=== PATIENT | female | born 1930 | race Caucasian/White ===

== ENCOUNTER 2017-10-24 17:41 | Emergency (ER) | payer MEDICARE, MEDICAID, OTHER ==
[~2017-10-24] VITALS: Ht 147.3 cm; Wt 76.9 kg
[~2017-10-24 17:41] MED LIST: CARV3.122 PO; CHOL10002 PO; FURO40TA4 PO; POTA10TA15 PO; RIVA15TA PO; SACU1TAB7 PO
[2017-10-24 18:17] VITALS: BP 139/57
[2017-10-24] MEDS ORDERED: CEPH-572 PO (20:50)
[2017-10-24] MEDS ORDERED: HYDROcodone/acetaminophen 5mg/325mg tablet PO ONE (20:55)
== END 2017-10-24 21:09 | disposition home or self-care (01) ==
LOC: ER 17:41
DX: L03.011 Cellulitis of right finger (principal); I25.10 Atherosclerotic heart disease of native coronary artery without angina pectoris; I50.9 Heart failure, unspecified; I48.91 Unspecified atrial fibrillation; Z95.1 Presence of aortocoronary bypass graft; Z96.89 Presence of other specified functional implants; Z95.0 Presence of cardiac pacemaker; Z79.899 Other long term (current) drug therapy
CPT/HCPCS: 73120; 99284

== ENCOUNTER 2017-12-16 01:05 | Emergency (ER) | payer MEDICARE, MEDICAID, OTHER ==
[~2017-12-16] VITALS: Ht 149.9 cm; Wt 77.5 kg
[2017-12-16 04:38] VITALS: BP 151/56
[2017-12-16 04:53] LABS: CLARITY,URINE CLEAR (Clear); COLOR,URINE YELLOW (Yellow); GLUCOSE, URINE NEGATIVE (Neg); KETONES,URINE NEGATIVE (Neg); LEUKOCYTE ESTERASE ,URINE TRACE (Neg); NITRITES, URINE NEGATIVE (Neg); OCCULT BLOOD,URINE TRACE-LYSED (Neg); PROTEIN,URINE NEGATIVE (Neg); UA COLLECTION TYPE CLN CATCH MIDSTREAM; UROBILINOGEN,URINE 0.2 E.U/dL (0.2-1.0)
[2017-12-16 04:57] LABS: BASOPHILS % (AUTO) 0.6 % (0-1); EOSINOPHILS # (AUTO) 0.4 X10'3 (0-0.9); EOSINOPHILS % (AUTO) 5.5 % (0-6); HEMATOCRIT 34.2 % (35.0-45.0); HEMOGLOBIN 11.5 g/dl (12.0-16.0); LYMPHOCYTES # (AUTO) 1.6 X10'3 (1.1-4.8); LYMPHOCYTES % (AUTO) 24.8 % (21-51); MEAN CORPUSCULAR HEMOGLOBIN 27.8 PG (27.0-31.0); MEAN CORPUSCULAR HGB CONC 33.7 % (33.0-36.5); MEAN CORPUSCULAR VOLUME 82.4 FL (78-98); MONOCYTES # (AUTO) 0.8 X10'3 (0-0.9); MONOCYTES % (AUTO) 11.7 % (2-12); NEUTROPHILS # (AUTO) 3.7 X10'3 (1.8-7.7); NEUTROPHILS % (AUTO) 57.4 % (42-75); PLATELET COUNT 214 X10'3 (140-440); RED BLOOD COUNT 4.15 X10'6 (4.20-5.60); WHITE BLOOD COUNT 6.5 X10'3 (4.5-11.0)
[2017-12-16 04:59] LABS: BACTERIA,URINE 3+ /HPF (Neg); SQUAMOUS EPITHELIAL CELL,UR FEW /LPF (FEW)
[2017-12-16 05:07] LABS: ALANINE AMINOTRANSFERASE 12 U/L (12-78); ALBUMIN 3.4 G/DL (3.4-5.0); ALBUMIN/GLOBULIN RATIO 0.8 (1.1-1.5); ALKALINE PHOSPHATASE 73 IU/L (46-116); ANION GAP 9 (8-16); ASPARTATE AMINO TRANSFERASE 19 U/L (10-37); BILIRUBIN,TOTAL 0.4 MG/DL (0.1-1.0); BLOOD UREA NITROGEN 29 MG/DL (7-18); CALCIUM 9.2 MG/DL (8.5-10.1); CHLORIDE 105 MMOL/L (99-107); CREATININE 1.21 MG/DL (0.40-0.90); GLUCOSE 95 MG/DL (70-104); POTASSIUM 3.9 MMOL/L (3.5-5.1); SODIUM 138 MMOL/L (135-145); TOTAL CARBON DIOXIDE 23.9 MMOL/L (24-32); TOTAL PROTEIN 7.7 G/DL (6.4-8.2); eGFR 42 ML/MIN
[2017-12-16 05:14] LABS: MAGNESIUM 2.1 MG/DL (1.5-2.4)
[2017-12-16] MEDS ORDERED: FURO-150 PO (05:21)
[2017-12-16] MEDS ORDERED: CEPH500C5 PO (05:21)
== END 2017-12-16 05:32 | disposition home or self-care (01) ==
LOC: ER 01:06
DX: R60.9 Edema, unspecified (principal); N28.9 Disorder of kidney and ureter, unspecified; I50.9 Heart failure, unspecified; N39.0 Urinary tract infection, site not specified; I48.91 Unspecified atrial fibrillation; I25.10 Atherosclerotic heart disease of native coronary artery without angina pectoris; J44.9 Chronic obstructive pulmonary disease, unspecified; Z95.1 Presence of aortocoronary bypass graft; Z88.1 Allergy status to other antibiotic agents; Z79.2 Long term (current) use of antibiotics; Z79.899 Other long term (current) drug therapy
CPT/HCPCS: 36415; 71045; 80053; 81001; 83735; 83880; 84484; 85025; 87077; 87088; 87186; 93005; 99285

== ENCOUNTER 2019-03-09 21:27 | Inpatient (IN) | payer MEDICARE, MEDICAID, OTHER ==
[~2019-03-09] VITALS: Ht 149.9 cm; Wt 79.1 kg
[~2019-03-09 21:27] MED LIST changes: +FURO-150 PO
[2019-03-09 22:04] LABS: BASOPHILS # (AUTO) 0.1 X10'3 (0-0.2); BASOPHILS % (AUTO) 1.1 % (0-1); EOSINOPHILS # (AUTO) 0.5 X10'3 (0-0.9); EOSINOPHILS % (AUTO) 6.4 % (0-6); HEMATOCRIT 30.3 % (35.0-45.0); LYMPHOCYTES # (AUTO) 1.6 X10'3 (1.1-4.8); LYMPHOCYTES % (AUTO) 22.3 % (21-51); MEAN CORPUSCULAR HEMOGLOBIN 27.3 PG (27.0-31.0); MEAN CORPUSCULAR HGB CONC 32.9 g/dL (33.0-36.5); MEAN CORPUSCULAR VOLUME 82.9 FL (78-98); MONOCYTES # (AUTO) 1.1 X10'3 (0-0.9); MONOCYTES % (AUTO) 14.5 % (2-12); NEUTROPHILS # (AUTO) 4.1 X10'3 (1.8-7.7); NEUTROPHILS % (AUTO) 55.7 % (42-75); PLATELET COUNT 282 X10'3 (140-440); RED BLOOD COUNT 3.65 X10'6 (4.20-5.60); RED CELL DISTRIBUTION WIDTH 14.8 % (11.5-14.5); WHITE BLOOD COUNT 7.3 X10'3 (4.5-11.0)
[2019-03-09 22:14] LABS: PARTIAL THROMBOPLASTIN TIME 43 SECONDS (22-32)
[2019-03-09] MEDS ORDERED: furosemide 10 MG/1 ML 10ml inj IV ONE (22:15)
[2019-03-09 22:24] LABS: ALANINE AMINOTRANSFERASE 14 U/L (12-78); ALBUMIN 3.2 G/DL (3.4-5.0); ALBUMIN/GLOBULIN RATIO 0.7 (1.1-1.5); ALKALINE PHOSPHATASE 86 IU/L (46-116); ANION GAP 11 (8-16); ASPARTATE AMINO TRANSFERASE 15 U/L (10-37); BILIRUBIN,TOTAL 0.3 MG/DL (0.1-1.0); BLOOD UREA NITROGEN 26 MG/DL (7-18); BUN/CREATININE RATIO 15.1 (6.6-38.0); CALCIUM 9.5 MG/DL (8.5-10.1); CHLORIDE 106 MMOL/L (99-107); CREATININE 1.72 MG/DL (0.40-0.90); GLUCOSE 111 MG/DL (70-104); POTASSIUM 4.1 MMOL/L (3.5-5.1); SODIUM 143 MMOL/L (135-145); TOTAL CARBON DIOXIDE 25.6 MMOL/L (24-32); TOTAL PROTEIN 8.1 G/DL (6.4-8.2); eGFR 28 ML/MIN
[2019-03-09] MEDS ORDERED: FURO-150 PO (23:11)
[2019-03-09] MEDS ORDERED: CARV3.122 PO (23:11)
[2019-03-09] MEDS ORDERED: AMLO2.5T4 PO (23:11)
[2019-03-09] MEDS ORDERED: ATOR20TA PO (23:11)
[2019-03-09] MEDS ORDERED: METF500T PO (23:12)
[2019-03-09] MEDS ORDERED: MAGN400C PO (23:12)
[2019-03-09] MEDS ORDERED: potassium Cl 20 mEq SR tablet PO PRN ×2 (23:15)
[2019-03-09] MEDS ORDERED: mag hydrox/Alum hydrox/simeth 30ml oral suspension PO PRN (23:15)
[2019-03-09] MEDS ORDERED: potassium CL 10mEq/100ml bag 100 ML IV PRN ×2 (23:15)
[2019-03-09] MEDS ORDERED: magnesium 4gm in 100ml NS 100 ML IV PRN (23:15)
[2019-03-09] MEDS ORDERED: acetaminophen 325mg tablet PO PRN ×2 (23:15)
[2019-03-09] MEDS ORDERED: magnesium Cl slow-release 64mg tablet PO PRN (23:15)
[2019-03-09] MEDS ORDERED: magnesium 2GM in 50ml NS 50 ML IV PRN (23:15)
[2019-03-09] MEDS ORDERED: ondansetron/PF 4mg/2ml inj IV PRN (23:15)
[2019-03-09] MEDS ORDERED: magnesium hydroxide 30ml (MOM) UD suspension PO PRN (23:15)
[2019-03-09 23:51] LABS: CLARITY,URINE SLIGHTLY CLOUDY (Clear); COLOR,URINE YELLOW (Yellow); GLUCOSE, URINE NEGATIVE (Neg); KETONES,URINE TRACE mg/dl (Neg); LEUKOCYTE ESTERASE ,URINE TRACE (Neg); NITRITES, URINE NEGATIVE (Neg); OCCULT BLOOD,URINE TRACE-INTACT (Neg); PH,URINE 5.5 (4.8-8.0); PROTEIN,URINE NEGATIVE (Neg); UROBILINOGEN,URINE 0.2 E.U/dL (0.2-1.0)
[2019-03-09 23:54] LABS: UA COLLECTION TYPE CLN CATCH MIDSTREAM
[2019-03-09 23:57] LABS: BACTERIA,URINE 3+ /HPF (Neg); RBC,URINE NONE SEEN /HPF (0-2)
[2019-03-09 23:58] LABS: SQUAMOUS EPITHELIAL CELL,UR FEW /LPF (FEW); WBC CLUMPS,URINE FEW /HPF (NEGATIVE)
[2019-03-10] MEDS ORDERED: dextrose ORAL solution 15 GM/59 ML bottle PO PRN ×2 (00:35)
[2019-03-10] MEDS ORDERED: MESSAGE TO PHARMACY PO ONE (00:35)
[2019-03-10] MEDS ORDERED: insulin Lispro (HumaLOG) vial - multi-dose SQ SCH (00:35)
[2019-03-10] MEDS ORDERED: glucagon, human recombinant 1mg kit SUBCUT PRN (00:35)
[2019-03-10] MEDS ORDERED: dextrose 50%-water 50ml dispensing syringe IV PRN ×2 (00:35)
[2019-03-10 01:01] LABS: HEMOGLOBIN A1C 5.9 % (4.5-6.2)
[2019-03-10 02:00] VITALS: BP 140/55
[2019-03-10 04:20] LABS: BASOPHILS # (AUTO) 0.1 X10'3 (0-0.2); BASOPHILS % (AUTO) 1.2 % (0-1); EOSINOPHILS # (AUTO) 0.8 X10'3 (0-0.9); EOSINOPHILS % (AUTO) 9.4 % (0-6); HEMOGLOBIN 10.4 g/dl (12.0-16.0); LYMPHOCYTES # (AUTO) 1.8 X10'3 (1.1-4.8); LYMPHOCYTES % (AUTO) 21.1 % (21-51); MEAN CORPUSCULAR HEMOGLOBIN 27.8 PG (27.0-31.0); MEAN CORPUSCULAR HGB CONC 33.4 g/dL (33.0-36.5); MEAN PLATELET VOLUME 8.3 FL (7.4-10.4); MONOCYTES # (AUTO) 0.9 X10'3 (0-0.9); MONOCYTES % (AUTO) 11.1 % (2-12); NEUTROPHILS # (AUTO) 4.8 X10'3 (1.8-7.7); NEUTROPHILS % (AUTO) 57.2 % (42-75); PLATELET COUNT 278 X10'3 (140-440); RED BLOOD COUNT 3.73 X10'6 (4.20-5.60); RED CELL DISTRIBUTION WIDTH 14.4 % (11.5-14.5); WHITE BLOOD COUNT 8.3 X10'3 (4.5-11.0)
[2019-03-10 04:21] LABS: ALBUMIN 3.3 G/DL (3.4-5.0); ANION GAP 11 (8-16); BLOOD UREA NITROGEN 27 MG/DL (7-18); BUN/CREATININE RATIO 16.4 (6.6-38.0); CALCIUM 9.4 MG/DL (8.5-10.1); CHLORIDE 104 MMOL/L (99-107); CREATININE 1.65 MG/DL (0.40-0.90); GLUCOSE 102 MG/DL (70-104); MAGNESIUM 2.4 MG/DL (1.5-2.4); POTASSIUM 4.2 MMOL/L (3.5-5.1); SODIUM 142 MMOL/L (135-145); TOTAL CARBON DIOXIDE 27.1 MMOL/L (24-32); eGFR 29 ML/MIN
--- NOTE | 2019-03-10 05:30 | NUR ---
Patient in room PCU 3009. I have received report from [facility] and had the opportunity to ask questions and assume patient care. Patient arrived at 0015 in stable condition. Denies chest pain, shortness of breath, nausea, burning or dribbling urination. Claims frequent urination from lasix.
[2019-03-10 06:00] VITALS: BP 124/55
--- NOTE | 2019-03-10 06:00 | NUR ---
Patient in room PCU 3009. I have received report from Jossy PARDO/ Alina PARDO and had the opportunity to ask questions and assume patient care.
--- NOTE | 2019-03-10 06:00 | NUR ---
[place] Medication Administration: For this medication-pass time frame, all medication were reviewed, dispensed, administered and documented per hospital policy by Alina PARDO. [place] documentation: I have reviewed interventions, assessments performed and documented by Alina PARDO.
--- NOTE | 2019-03-10 06:07 | NUR ---
Problems reprioritized. Patient report given, questions answered & plan of care reviewed with Galina PARDO.
[2019-03-10] MEDS: carvedilol 6.25mg tablet PO SCH (08:00)
[2019-03-10] MEDS: K and/or MAG REPLACEMENT MC SCH (08:00)
[2019-03-10] MEDS: furosemide 40mg/4ml inj IV SCH ×2 (09:20→20:24)
[2019-03-10] MEDS: magnesium oxide 400mg tablet PO SCH (09:20)
[2019-03-10] MEDS: vitamin D (cholecalciferol) 1,000 unit tablet PO SCH (09:21)
[2019-03-10] MEDS: enoxaparin 80mg/0.8ml syringe SUBCUT SCH (09:21)
[2019-03-10 11:00] VITALS: BP 123/55
[2019-03-10 15:00] VITALS: BP 140/50
--- NOTE | 2019-03-10 18:00 | NUR ---
Problems reprioritized. Patient report given, questions answered & plan of care reviewed with Marta PARDO/Toby RN.
--- NOTE | 2019-03-10 18:42 | NUR ---
Patient in room PCU 3009. I have received report from Huseyin PARDO and had the opportunity to ask questions and assume patient care.
[2019-03-10 19:00] VITALS: BP_SYST 121; BP_SYST 130; BP_DIAS 46; BP_DIAS 52
[2019-03-10] MEDS: atorvastatin 20mg tablet PO SCH (20:24)
[2019-03-10] MEDS: insulin glargine (Lantus) pen - multi-dose SQ SCH (21:00)
[2019-03-10 23:02] VITALS: BP 124/45
[2019-03-11 02:00] VITALS: BP 126/49
--- NOTE | 2019-03-11 05:33 | NUR ---
[place] documentation: I have reviewed and agree with all interventions, assessments performed and documented by Toby RN. [place] Medication Administration: For this medication-pass time frame, all medication were reviewed, dispensed, administered and documented per hospital policy by Toby RN.
[2019-03-11 06:00] VITALS: BP 103/38
--- NOTE | 2019-03-11 06:00 | NUR ---
Patient in room PCU 3009. I have received report from Marta PARDO/Toby RN and had the opportunity to ask questions and assume patient care.
[2019-03-11 06:05] LABS: BASOPHILS # (AUTO) 0.1 X10'3 (0-0.2); BASOPHILS % (AUTO) 0.9 % (0-1); EOSINOPHILS # (AUTO) 0.4 X10'3 (0-0.9); EOSINOPHILS % (AUTO) 6.1 % (0-6); HEMATOCRIT 28.9 % (35.0-45.0); HEMOGLOBIN 9.8 g/dl (12.0-16.0); LYMPHOCYTES # (AUTO) 1.2 X10'3 (1.1-4.8); LYMPHOCYTES % (AUTO) 18.9 % (21-51); MEAN CORPUSCULAR HGB CONC 34.1 g/dL (33.0-36.5); MEAN CORPUSCULAR VOLUME 82.1 FL (78-98); MEAN PLATELET VOLUME 8.2 FL (7.4-10.4); MONOCYTES # (AUTO) 0.9 X10'3 (0-0.9); MONOCYTES % (AUTO) 14.9 % (2-12); NEUTROPHILS # (AUTO) 3.7 X10'3 (1.8-7.7); NEUTROPHILS % (AUTO) 59.2 % (42-75); PLATELET COUNT 269 X10'3 (140-440); RED BLOOD COUNT 3.52 X10'6 (4.20-5.60); RED CELL DISTRIBUTION WIDTH 14.7 % (11.5-14.5); WHITE BLOOD COUNT 6.3 X10'3 (4.5-11.0)
--- NOTE | 2019-03-11 06:16 | NUR ---
Problems reprioritized. Patient report given, questions answered & plan of care reviewed with
[2019-03-11 06:39] LABS: ANION GAP 11 (8-16); BLOOD UREA NITROGEN 29 MG/DL (7-18); BUN/CREATININE RATIO 18.7 (6.6-38.0); CALCIUM 8.9 MG/DL (8.5-10.1); CHLORIDE 106 MMOL/L (99-107); CREATININE 1.55 MG/DL (0.40-0.90); GLUCOSE 104 MG/DL (70-104); MAGNESIUM 2.2 MG/DL (1.5-2.4); POTASSIUM 3.6 MMOL/L (3.5-5.1); SODIUM 144 MMOL/L (135-145); TOTAL CARBON DIOXIDE 27.3 MMOL/L (24-32); eGFR 32 ML/MIN
[2019-03-11] MEDS: magnesium oxide 400mg tablet PO SCH (07:39)
[2019-03-11] MEDS: furosemide 40mg/4ml inj IV SCH ×2 (07:41→20:58)
[2019-03-11] MEDS: enoxaparin 80mg/0.8ml syringe SUBCUT SCH (07:45)
[2019-03-11] MEDS: carvedilol 6.25mg tablet PO SCH (07:50)
[2019-03-11] MEDS: vitamin D (cholecalciferol) 1,000 unit tablet PO SCH (07:50)
[2019-03-11] MEDS: K and/or MAG REPLACEMENT MC SCH (08:00)
[2019-03-11 11:00] VITALS: BP 131/44
[2019-03-11] MEDS: CefTRIAXone/D5W-Rocephin 1gm 50 ML IV SCH (12:50)
--- NOTE | 2019-03-11 13:00 | NUR ---
IV abx administered per primary RN request. Pt educated about abx and possible side effects, pt verbalizes understanding, states will notify staff if symptoms appear. Call light in reach.
[2019-03-11 15:00] VITALS: BP 150/45
--- NOTE | 2019-03-11 15:34 | NUR ---
[facility] SYED regarding discharge status PAGER ID: [phone] MESSAGE: [phone], Jarvis Kam Patient states she will discharge at around 1630. No discharge orders in. Still discharging? Loida [facility] [id number]
[2019-03-11] MEDS ORDERED: FLU VACC QS2019-20 36MOS UP/PF 60 MCG/0.5 ML SYRINGE IMVAC ONE (17:00)
[2019-03-11] MEDS ORDERED: pneumococcal 23-VAL P-sac vacc 25 mcg/0.5ml vial IMVAC ONE (17:00)
[2019-03-11 18:00] VITALS: BP 152/44
--- NOTE | 2019-03-11 18:40 | NUR ---
Patient in room PCU 3009. I have received report from EDVIN Orosco and had the opportunity to ask questions and assume patient care. Pt denies CP, SOB, n/v, dizziness, and rated pain 0/10. Pt is in 1,800 ml fluid restriction. Will continue to monitor
--- NOTE | 2019-03-11 19:00 | NUR ---
Problems reprioritized. Patient report given, questions answered & plan of care reviewed with Florin PARDO.
[2019-03-11] MEDS: atorvastatin 20mg tablet PO SCH (20:58)
[2019-03-11] MEDS: insulin glargine (Lantus) pen - multi-dose SQ SCH (21:00)
[2019-03-11 22:00] VITALS: BP 133/51
[2019-03-12 02:00] VITALS: BP 124/41
[2019-03-12 06:00] VITALS: BP 121/43
[2019-03-12 06:03] LABS: BASOPHILS # (AUTO) 0.1 X10'3 (0-0.2); BASOPHILS % (AUTO) 0.9 % (0-1); EOSINOPHILS # (AUTO) 0.4 X10'3 (0-0.9); EOSINOPHILS % (AUTO) 6.3 % (0-6); HEMATOCRIT 29.2 % (35.0-45.0); HEMOGLOBIN 9.8 g/dl (12.0-16.0); LYMPHOCYTES # (AUTO) 1.4 X10'3 (1.1-4.8); MEAN CORPUSCULAR HEMOGLOBIN 27.6 PG (27.0-31.0); MEAN CORPUSCULAR HGB CONC 33.6 g/dL (33.0-36.5); MEAN CORPUSCULAR VOLUME 82.3 FL (78-98); MEAN PLATELET VOLUME 8.2 FL (7.4-10.4); MONOCYTES # (AUTO) 0.9 X10'3 (0-0.9); MONOCYTES % (AUTO) 13.9 % (2-12); NEUTROPHILS # (AUTO) 3.7 X10'3 (1.8-7.7); NEUTROPHILS % (AUTO) 56.9 % (42-75); PLATELET COUNT 274 X10'3 (140-440); RED BLOOD COUNT 3.55 X10'6 (4.20-5.60); RED CELL DISTRIBUTION WIDTH 14.5 % (11.5-14.5); WHITE BLOOD COUNT 6.5 X10'3 (4.5-11.0)
[2019-03-12 06:06] LABS: ALBUMIN 2.9 G/DL (3.4-5.0); ANION GAP 9 (8-16); BLOOD UREA NITROGEN 35 MG/DL (7-18); BUN/CREATININE RATIO 20.6 (6.6-38.0); CALCIUM 9.5 MG/DL (8.5-10.1); CHLORIDE 104 MMOL/L (99-107); GLUCOSE 101 MG/DL (70-104); MAGNESIUM 2.6 MG/DL (1.5-2.4); POTASSIUM 3.4 MMOL/L (3.5-5.1); SODIUM 142 MMOL/L (135-145); TOTAL CARBON DIOXIDE 28.8 MMOL/L (24-32); eGFR 28 ML/MIN
--- NOTE | 2019-03-12 06:15 | NUR ---
Problems reprioritized. Patient report given, questions answered & plan of care reviewed with EDVIN Orosco. Pt stable at shift change
--- NOTE | 2019-03-12 06:52 | NUR ---
Patient in room PCU 3009. I have received report from Florin PARDO and had the opportunity to ask questions and assume patient care.
[2019-03-12] MEDS: enoxaparin 80mg/0.8ml syringe SUBCUT SCH (07:53)
[2019-03-12] MEDS: magnesium oxide 400mg tablet PO SCH (07:53)
[2019-03-12] MEDS: furosemide 40mg/4ml inj IV SCH (07:53)
[2019-03-12] MEDS: CefTRIAXone/D5W-Rocephin 1gm 50 ML IV SCH (07:53)
[2019-03-12] MEDS: vitamin D (cholecalciferol) 1,000 unit tablet PO SCH (07:54)
[2019-03-12] MEDS: carvedilol 6.25mg tablet PO SCH (07:54)
[2019-03-12 11:00] VITALS: BP 125/46
[2019-03-12] MEDS ORDERED: CEFD300C3 PO (11:53)
--- NOTE | 2019-03-12 13:30 | NUR ---
Pt c/o itchy back, notified , bendadryl cream ordered per Addendum: 03/12/19 at 1405 by Lizbeth Cisneros RN Please disregard, incorrect patient.
[2019-03-12] MEDS ORDERED: diphenhydrAMINE 2%/zinc acetate cream TP PRN (13:35)
--- NOTE | 2019-03-12 14:45 | NUR ---
Stable for discharge per MD orders. New prescription called into pharmacy of preference. Attempted to call PCP to set up appt; staff was at lunch. Left voicemail and call back number and instructions to return call or contact pt to set up follow up appt. Received call back from MD patient svcs mgr and confirmed appt date and time at bedside with patient and family, while discharge instructions and discharge packet were being reviewed. All belongings stayed on patient. Tele monitoring discontinued; PIV discontinued, cannula intact. Transferred to private vehicle via wheelchair accompanied by family.
[2019-03-12] MEDS ORDERED: lactobacillus rhamnosus 10,000 MMU CELLS/CAPSULE PO SCH (20:00)
== END 2019-03-12 15:00 | disposition home or self-care (01) | DRG 291 ==
LOC: ER 21:28 → ED HOLD 23:31 → CMPBEDREQ 03-10 00:33 → PCU 3S 03-10 00:58
PROVIDERS: ADMIT Hospitalist; ATTEND Family Medicine
PROC: 3E0234Z Introduction of Serum, Toxoid and Vaccine into Muscle, Percutaneous Approach (ICD-10-PCS; 2019-03-11)
PROC: 3E02340 Introduction of Influenza Vaccine into Muscle, Percutaneous Approach (ICD-10-PCS; principal; 2019-03-12)
DX: I13.0 Hypertensive heart and chronic kidney disease with heart failure and stage 1 through stage 4 chronic kidney disease, or unspecified chronic kidney disease (principal); I50.33 Acute on chronic diastolic (congestive) heart failure; N17.9 Acute kidney failure, unspecified; N39.0 Urinary tract infection, site not specified; I48.20 Chronic atrial fibrillation, unspecified; B96.20 Unspecified Escherichia coli [E. coli] as the cause of diseases classified elsewhere; D64.9 Anemia, unspecified; E11.22 Type 2 diabetes mellitus with diabetic chronic kidney disease; G89.29 Other chronic pain; M54.9 Dorsalgia, unspecified; E87.6 Hypokalemia; I25.10 Atherosclerotic heart disease of native coronary artery without angina pectoris; J44.9 Chronic obstructive pulmonary disease, unspecified; I08.2 Rheumatic disorders of both aortic and tricuspid valves; N18.3 Chronic kidney disease, stage 3 (moderate); Z95.0 Presence of cardiac pacemaker; Z88.1 Allergy status to other antibiotic agents; Z79.899 Other long term (current) drug therapy; Z23 Encounter for immunization; Z95.1 Presence of aortocoronary bypass graft; Z90.49 Acquired absence of other specified parts of digestive tract; Z79.84 Long term (current) use of oral hypoglycemic drugs; Z98.891 History of uterine scar from previous surgery
CPT/HCPCS: 36415; 71045; 72100; 80048; 80053; 81001; 82948; 83036; 83735; 83880; 84484; 85025; 85610; 85730; 87077; 87081; 87088; 87186; 90732; 93005; 93306; 96374; 97116; 97161; 97530; 99285; G0378; J0696; J1650; J1815; J1940; Q2037

== ENCOUNTER 2019-05-06 13:08 | Emergency (ER) | payer MEDICARE, MEDICAID, OTHER ==
[~2019-05-06] VITALS: Ht 149.9 cm; Wt 77.3 kg
[~2019-05-06 13:08] MED LIST changes: +AMLO2.5T4 PO; +ATOR20TA PO; -FURO40TA4 PO; +MAGN400C PO; +METF500T PO; -POTA10TA15 PO; -SACU1TAB7 PO
[2019-05-06] MEDS ORDERED: AZIT-72 PO (15:03)
[2019-05-06] MEDS ORDERED: ACET-812 PO (15:03)
[2019-05-06 15:50] LABS: CLARITY,URINE TURBID (Clear); COLOR,URINE YELLOW (Yellow); GLUCOSE, URINE NEGATIVE (Neg); KETONES,URINE NEGATIVE (Neg); LEUKOCYTE ESTERASE ,URINE SMALL (Neg); NITRITES, URINE NEGATIVE (Neg); OCCULT BLOOD,URINE SMALL (Neg); PH,URINE 5.5 (4.8-8.0); PROTEIN,URINE NEGATIVE (Neg); UROBILINOGEN,URINE 0.2 E.U/dL (0.2-1.0)
[2019-05-06] MEDS ORDERED: TRAM50TA2 PO (15:52)
[2019-05-06 16:08] LABS: UA COLLECTION TYPE CLN CATCH MIDSTREAM
[2019-05-06 16:11] VITALS: BP 133/65
[2019-05-06 16:17] LABS: BACTERIA,URINE 4+ /HPF (Neg)
[2019-05-06 16:18] LABS: TRANSITIONAL EPI CELLS,URINE FEW /HPF
[2019-05-06 16:19] LABS: RBC,URINE 0-2 /HPF (0-2); WBC,URINE 0-4 /HPF (0-4)
[2019-05-06 16:20] LABS: MUCUS STRANDS FEW /LPF (Neg)
[2019-05-06 16:30] LABS: AMORPHOUS URATES 4+
[2019-05-06 16:33] LABS: SQUAMOUS EPITHELIAL CELL,UR MANY /LPF (FEW)
== END 2019-05-06 16:13 | disposition home or self-care (01) ==
LOC: ER 13:09
DX: L03.113 Cellulitis of right upper limb (principal); I48.91 Unspecified atrial fibrillation; I25.10 Atherosclerotic heart disease of native coronary artery without angina pectoris; J44.9 Chronic obstructive pulmonary disease, unspecified; I50.9 Heart failure, unspecified; Z90.49 Acquired absence of other specified parts of digestive tract; Z95.0 Presence of cardiac pacemaker; Z95.1 Presence of aortocoronary bypass graft; Z88.1 Allergy status to other antibiotic agents; Z88.8 Allergy status to other drugs, medicaments and biological substances; Z79.84 Long term (current) use of oral hypoglycemic drugs; Z79.899 Other long term (current) drug therapy; W55.03XA Scratched by cat, initial encounter; Y93.89 Activity, other specified; Y92.89 Other specified places as the place of occurrence of the external cause; Y99.8 Other external cause status
CPT/HCPCS: 73130; 81001; 99284